=== PATIENT | female | born 1930 | race Caucasian/White ===

== ENCOUNTER 2016-11-08 10:28 | Outpatient (CLI) | payer MEDICARE ==
[2016-11-08 11:16] LABS: #Basophils 0.1 thou/uL (0.0-0.2); #Eosinphils 0.1 thou/uL (0.0-0.7); #Lymphocytes 1.3 thou/uL (1.20-3.40); #Monocytes 0.4 thou/uL (0.11-0.59); #Neutrophils 2.1 thou/uL (1.40-6.50); %Basophils 2.3 % (0.0-1.0); %Eosinophils 2.7 % (0.0-10.0); %Lymphocytes 32.5 % (21.0-51.0); %Monocytes 9.4 % (0.0-10.0); Hemoglobin 11.3 g/dL (12.0-16.0); Mean Corpuscular HGB CONC 32.1 g/dL (32.0-36.0); Mean Corpuscular Hemoglobin 28.6 pg (27.0-31.0); Mean Platelet Volume 8.9 fL (7.4-10.4); Platelet Count 148 thou/uL (130-400); RBC Distribution Width 12.7 % (11.5-14.5); Red Blood Cell (RBC) Count 3.96 mill/uL (4.20-5.40); White Blood Cell (WBC) Count 3.9 thou/uL (4.8-10.8)
[2016-11-08 11:29] LABS: ALT (SGPT) 9 U/L (8-55); AST (SGOT) 16 U/L (5-34); Albumin 4.1 g/dL (3.4-4.8); Alkaline Phosphatase 100 U/L (40-150); Anion Gap 13 mmol/L (10-20); BUN (Urea Nitrogen) 22 mg/dL (9.8-20.1); Bilirubin, Total 0.5 mg/dL (0.2-1.2); Calc. Creatinine Clearance 0 mL/min (70-130); Calcium 9.7 mg/dL (7.8-10.44); Carbon Dioxide 27 mmol/L (23-31); Cardiac Risk 3.3 (Less than 4.5); Chloride 106 mmol/L (98-107); Cholesterol 156 mg/dl (< 200 Desired); Estimated GFR-MDRD 61; Globulin 3.4 g/dL (2.4-3.5); Glucose 80 mg/dL (83-110); HDL Cholesterol 47 mg/dL (>60 Neg Risk); LDL Cholesterol, Calculated 94 mg/dL; Potassium 3.9 mmol/L (3.5-5.1); Protein, Total 7.5 g/dL (6.0-8.3); Sodium 142 mmol/L (136-145); Triglycerides 76 mg/dL (Less than 150)
[2016-11-08 11:45] LABS: Free T4 (Free Thyroxine) 1.02 ng/dL (0.70-1.48); Thyroid Stimulating Hormone 1.5836 uIU/mL (0.35-4.94)
== END 2016-11-08 10:29 | disposition home or self-care (01) ==
LOC: MADLABBHPM 10:28
PROVIDERS: ATTEND Family Medicine
DX: I10 Essential (primary) hypertension (principal)
CPT/HCPCS: 36415; 80053; 80061; 84439; 84443; 85025

== ENCOUNTER 2017-01-14 19:21 | Emergency (ER) | payer MEDICARE ==
[~2017-01-14 19:21] MED LIST: Sodium Chloride 0.9% 100 ML BAG ONE
[2017-01-14] MEDS ORDERED: Dexamethasone 10 MG/ML VIAL ONE (19:51)
[2017-01-14] MEDS ORDERED: cefTRIAXone\\ROCEPHIN 1 GM VIAL ONE (19:51)
[2017-01-14] MEDS ORDERED: methylPREDNISolone Sod Succ/PF 125 MG/2 ML VIAL ONE (19:51)
[2017-01-14 20:03] LABS: #Basophils 0.1 thou/uL (0.0-0.2); #Eosinphils 0.1 thou/uL (0.0-0.7); #Lymphocytes 1.2 thou/uL (1.20-3.40); #Monocytes 0.5 thou/uL (0.11-0.59); #Neutrophils 3.8 thou/uL (1.40-6.50); %Basophils 1.2 % (0.0-1.0); %Eosinophils 1.9 % (0.0-10.0); %Lymphocytes 21.4 % (21.0-51.0); %Monocytes 8.5 % (0.0-10.0); Hemoglobin 12.3 g/dL (12.0-16.0); Mean Corpuscular HGB CONC 31.9 g/dL (32.0-36.0); Mean Corpuscular Volume 84.6 fl (81.0-99.0); Mean Platelet Volume 8.6 fL (7.4-10.4); Platelet Count 130 thou/uL (130-400); RBC Distribution Width 13.8 % (11.5-14.5); Red Blood Cell (RBC) Count 4.56 mill/uL (4.20-5.40); White Blood Cell (WBC) Count 5.6 thou/uL (4.8-10.8)
[2017-01-14 20:06] LABS: INR-International Normal Ratio 1.1; PTT 28.7 SEC (22.9-36.1); Prothrombin Time 14.4 SEC (12.0-14.7)
[2017-01-14 20:18] LABS: ALT (SGPT) 11 U/L (8-55); AST (SGOT) 14 U/L (5-34); Alkaline Phosphatase 83 U/L (40-150); Anion Gap 16 mmol/L (10-20); BUN (Urea Nitrogen) 26 mg/dL (9.8-20.1); Bilirubin, Total 0.4 mg/dL (0.2-1.2); CK (CPK) 50 U/L (29-168); Calc. Creatinine Clearance 0 mL/min (70-130); Calcium 9.1 mg/dL (7.8-10.44); Carbon Dioxide 26 mmol/L (23-31); Chloride 105 mmol/L (98-107); Estimated GFR-MDRD 44; Globulin 3.2 g/dL (2.4-3.5); Glucose 116 mg/dL (83-110); Magnesium 2.2 mg/dL (1.6-2.6); Potassium 3.7 mmol/L (3.5-5.1); Protein, Total 7.2 g/dL (6.0-8.3); Sodium 143 mmol/L (136-145)
[2017-01-14 20:19] LABS: CKMB 1.2 ng/mL (0-6.6); Troponin I Less than 0.010 ng/mL (< 0.028)
--- NOTE | 2017-01-14 20:45 | RAD ---
EXAM: ONE VIEW CHEST 01/14/17 HISTORY: Dyspnea. FINDINGS: Single view chest: There are sternotomy wires. There is atherosclerosis of the aortic knob. Normal cardiac silhouette. Pulmonary vessels are slightly prominent. Patchy interstitial opacities is likely due to edema. No s ignificant pleural fluid. Mild hyperinflation. No pneumothorax. IMPRESSION: 1. Pulmonary vascular prominence and interstitial edema. 2. Atherosclerosis. 3. Hyperinflation. POS: [facility]
== END 2017-01-14 22:02 | disposition home or self-care (01) ==
LOC: MADERS 19:21
DX: R06.02 Shortness of breath (principal); Z79.899 Other long term (current) drug therapy
CPT/HCPCS: 36415; 71010; 80053; 82553; 83735; 83880; 84484; 85025; 85610; 85730; 87040; 93005; 94640; 94760; 96365; 96375; J0696; J1100; J2930; J7050; J7620

== ENCOUNTER 2018-09-14 19:08 | Emergency (ER) | payer MEDICARE ==
[~2018-09-14 19:08] MED LIST changes: +Iopamidol 370 76% 100 ML VIAL ONE; -Sodium Chloride 0.9% 100 ML BAG ONE
[2018-09-14 20:10] LABS: Bilirubin Negative (Negative); Blood, Urine Trace (Negative); Glucose, Urine (Dipstick) Negative (Negative); Leukocyte Moderate (Negative); Nitrite Positive (Negative); Protein, Urine (Dipstick) 30 mg/dL (Neg-Trace); Specific Gravity, Urine 1.025 (1.005-1.030); Urobilinogen 0.2 mg/dL (0.2-1.0)
[2018-09-14 20:11] LABS: #Basophils 0.1 thou/uL (0.0-0.2); #Eosinphils 0.1 thou/uL (0.0-0.7); #Lymphocytes 0.6 thou/uL (1.20-3.40); #Monocytes 0.3 thou/uL (0.11-0.59); #Neutrophils 4.5 thou/uL (1.40-6.50); %Basophils 1.2 % (0.0-1.0); %Eosinophils 0.9 % (0.0-10.0); %Lymphocytes 11.1 % (21.0-51.0); %Monocytes 6.1 % (0.0-10.0); %Neutrophils 80.7 % (42.0-75.0); Hemoglobin 12.5 g/dL (12.0-16.0); Mean Corpuscular HGB CONC 32.2 g/dL (32.0-36.0); Mean Corpuscular Hemoglobin 27.8 pg (27.0-31.0); Mean Corpuscular Volume 86.4 fL (78.0-98.0); Mean Platelet Volume 7.4 fL (7.4-10.4); Platelet Count 205 thou/uL (130-400); RBC Distribution Width 12.8 % (11.5-14.5); White Blood Cell (WBC) Count 5.6 thou/uL (4.8-10.8)
[2018-09-14 20:11] LABS: Clarity Hazy (Clear)
[2018-09-14 20:16] LABS: Bacteria/HPF 4+ HPF (None Seen); Squamous Epithelial 0-3 HPF (0-3); WBC/HPF 21-50 HPF (0-3)
[2018-09-14] MEDS ORDERED: Prochlorperazine 10 MG/2 ML VIAL ONE (20:26)
--- NOTE | 2018-09-14 20:29 | RAD ---
AP VIEW CHEST: 09/14/18 HISTORY: Nausea and vomiting, choking. AP view chest is obtained on 09/14/18. Comparison made to previous exam from 01/14/17. AP view chest demonstrates sternotomy wires seen. Mild pulmonary vascular congestion seen. No evidenc e of effusions, pneumonia or pneumothorax seen. IMPRESSION: Unremarkable AP view chest. POS: [facility]
[2018-09-14 20:32] LABS: ALT (SGPT) 10 U/L (8-55); AST (SGOT) 17 U/L (5-34); Albumin 4.1 g/dL (3.4-4.8); Alkaline Phosphatase 108 U/L (40-150); Anion Gap 15 mmol/L (10-20); BUN (Urea Nitrogen) 12 mg/dL (9.8-20.1); Bilirubin, Total 0.5 mg/dL (0.2-1.2); Calc. Creatinine Clearance 0 mL/min (70-130); Calcium 9.3 mg/dL (7.8-10.44); Carbon Dioxide 26 mmol/L (23-31); Chloride 107 mmol/L (98-107); Estimated GFR-MDRD 72; Globulin 3.1 g/dL (2.4-3.5); Glucose 124 mg/dL (83-110); Lipase 32 U/L (8-78); Magnesium 2.1 mg/dL (1.6-2.6); Potassium 3.9 mmol/L (3.5-5.1); Protein, Total 7.2 g/dL (6.0-8.3); Sodium 144 mmol/L (136-145)
[2018-09-14] MEDS ORDERED: Nitroglycerin 2% Ointment 1 INCH/1 GM Packet ONE (20:57)
[2018-09-14] MEDS ORDERED: cefTRIAXone\\ROCEPHIN 1 GM VIAL ONE (21:00)
[2018-09-14] MEDS ORDERED: Sodium Chloride 0.9% 100 ML ONE (21:00)
--- NOTE | 2018-09-14 21:42 | CT ---
NONCONTRAST CT HEAD: 09/14/18 HISTORY: Altered mental status and vomiting. Elevated blood pressure. FINDINGS: There is motion artifact on multiple images mildly degrading image quality. No obvious intraparenchym al or extra-axial hemorrhage is seen. There are no findings to suggest an acute cortical infarction. There are two punctate low density foci seen within the posterior limb left internal capsule relate d to lacunar infarctions of indeterminate age. Small wedge shaped low density area seen in the left c erebellar hemisphere most compatible with a remote infarction. There is mild cerebral volume loss an d chronic small vessel ischemic changes. The ventricular system is normal in size, shape and position for the degree of sulcal atrophy. The visualized paranasal sinuses and mastoid air cells are clear. Calvarial structures have a normal appearance. IMPRESSION: 1. Punctate lacunar infarctions posterior limb left internal capsule of indeterminate age. There is no acute cortical infarction seen. 2. Remote infarction left cerebellar hemisphere. 3. Mild cerebral volume loss and chronic small vessel ischemic changes. POS: [facility]
[2018-09-14] MEDS ORDERED: Labetalol HCl 100 MG/20 ML VIAL ONE (21:53)
--- NOTE | 2018-09-14 22:07 | CT ---
CT ABDOMEN AND PELVIS WITH IV CONTRAST: 09/14/18 HISTORY: Abdominal pain with nausea and vomiting. FINDINGS: Parenchymal changes are seen at the posterior right lung base probably related to pleural thickening and associated volume loss. There is a 1.4 cm hypodense lesion seen within the body of the spleen with a few additional smaller h ypodense lesions. Difficult to characterize. A 3.5 cm hypodense cystic lesion is seen in the inferior pole right kidney demonstrating characterist ics most compatible with a cyst. Subcentimeter too small to characterize hypodense lesions are seen i n each kidney. There is a staghorn left renal calculus with scarring involving the inferior pole left kidney. There is mild dilatation of inferior pole left renal calyces. Mild caliectasis of superior pole left shiraz l calyces. There is minimal stranding adjacent to the renal pelvis which does contain portion of the staghorn renal calculus which involves the left renal pelvis and inferior pole left kidney. Mild str anding may be related to the calculus, but infection cannot be entirely excluded. Correlation with ur inalysis is recommended. The gallbladder is distended. There are calculi and/or sludge layering dependently within the gallbla dder fundus. There is suggestion of trace biliary ductal dilatation. Common duct is not dilated. The pancreas and bilateral adrenal glands as well as urinary bladder demonstrate a normal CT appearan ce. Small amount of free fluid is seen in the pericolic gutters bilaterally as well in the pelvis. There is mild bowel wall thickening involving loops of small bowel within the left lower quadrant and in the pelvis with adjacent mild mesenteric edema and fluid which could also be attributable to ente ritis. The thickened loops of bowel are mildly prominent but do measure less than 3 cm. Scattered colonic diverticula are seen. Multilevel degenerative changes are seen in the spine with mild right convexed curvature of the thora columbar spine. Right total hip prosthesis is present. No fluid collection or lymphadenopathy is seen in the abdomen or pelvis. A few mildly prominent left periaortic lymph nodes are present. Largest measuring 0.9 cm in short axis dimension which are nonspe cific. IMPRESSION: 1. Thickened loops of small bowel in the left abdomen which extend into the pelvis with adjacent mild mesenteric edema and fluid with mild prominence of these loops of bowel. Findings may be relate d to enteritis. 2. 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 There is calyceal dilatation inferior pole left renal calculus and to a lesser extent the superior pole. Mild stranding is seen adjacent the left renal pelvis which is nonspecific and ma y be attributable to the calculus. However, infection cannot be entirely excluded, and correlation wi th urinalysis is recommended. 3. Right renal cyst with too small to characterize hypodense lesions in each kidney. 4. Distention of the gallbladder with gallbladder calculi and/or sludge. 5. Hypodense lesions in the spleen. The exact etiology is uncertain. Findings could be related t o cysts. Follow-up evaluation recommended. 6. Pleural thickening and volume loss at the right lung base. 7. Small amount of free fluid in the abdomen and pelvis. POS: [facility]
== END 2018-09-14 22:17 | disposition short-term general hospital (02) ==
LOC: MADERS 19:08
DX: K80.20 Calculus of gallbladder without cholecystitis without obstruction (principal); N20.0 Calculus of kidney; E87.70 Fluid overload, unspecified; I10 Essential (primary) hypertension; K63.89 Other specified diseases of intestine; F03.90 Unspecified dementia, unspecified severity, without behavioral disturbance, psychotic disturbance, mood disturbance, and anxiety; K21.9 Gastro-esophageal reflux disease without esophagitis; D64.9 Anemia, unspecified; F42.9 Obsessive-compulsive disorder, unspecified; F32.9 Major depressive disorder, single episode, unspecified; Z79.899 Other long term (current) drug therapy
CPT/HCPCS: 36415; 51701; 70450; 71045; 74177; 80053; 81003; 81015; 83690; 83735; 83880; 84443; 84484; 85025; 87077; 87086; 87186; 93005; 96365; 96375; A4353; J0696; J0780; J3490; Q9967

== ENCOUNTER 2019-06-10 15:23 | Outpatient (CLI) | payer MEDICARE | END 2019-06-10 15:24 | disposition home or self-care (01) | LOC: MADLABBHPM 15:23 | PROVIDERS: ATTEND Family Medicine | DX: R05 Cough (principal) | CPT/HCPCS: 87804 ==

== ENCOUNTER 2019-11-08 12:08 | Emergency (ER) | payer MEDICARE, OTHER ==
[2019-11-08] MEDS ORDERED: Sodium Chloride 0.9% 1,000 ML ONE (13:04)
[2019-11-08 13:11] LABS: Anisocytosis SLIGHT = 6-15 cells (100X) (0-5/hpf); Band 7 % (5-11); Eosinophils 1 % (0-10); Hemoglobin 13.3 g/dL (12.0-16.0); Hypochromia SLIGHT = 6-15 cells (100X) (0-5/hpf); Lymphocytes 6 % (21-51); MDiff Complete? YES; Mean Corpuscular HGB CONC 30.8 g/dL (32.0-36.0); Mean Corpuscular Hemoglobin 27.6 pg (27.0-31.0); Mean Corpuscular Volume 89.6 fL (78.0-98.0); Mean Platelet Volume 9.5 fL (7.4-10.4); Monocytes 5 % (0-10); Neutrophil 81 % (42-75); Platelet Count 181 thou/uL (130-400); Platelet Morphology Comment Appears Adequate; RBC Distribution Width 14.4 % (11.5-14.5); Red Blood Cell (RBC) Count 4.81 mill/uL (4.20-5.40); White Blood Cell (WBC) Count 22.5 thou/uL (4.8-10.8)
[2019-11-08 13:17] LABS: ALT (SGPT) 128 U/L (8-55); AST (SGOT) 83 U/L (5-34); Alkaline Phosphatase 210 U/L (40-110); Anion Gap 24 mmol/L (10-20); BUN (Urea Nitrogen) 64 mg/dL (9.8-20.1); Bilirubin, Total 0.8 mg/dL (0.2-1.2); Calc. Creatinine Clearance 0 mL/min (70-130); Calcium 8.2 mg/dL (7.8-10.44); Carbon Dioxide 22 mmol/L (23-31); Chloride 100 mmol/L (98-107); Estimated GFR-MDRD 8; Globulin 3.8 g/dL (2.4-3.5); Glucose 82 mg/dL (83-110); Lipase 874 U/L (8-78); Potassium 4.8 mmol/L (3.5-5.1); Protein, Total 7.8 g/dL (6.0-8.3); Sodium 141 mmol/L (136-145)
[2019-11-08 13:34] LABS: CKMB 1.7 ng/mL (0-6.6)
[2019-11-08 14:07] LABS: Bilirubin Small (Negative); Blood, Urine Moderate (Negative); Clarity Cloudy (Clear); Glucose, Urine (Dipstick) Negative (Negative); Leukocyte Large (Negative); Nitrite Negative (Negative); Protein, Urine (Dipstick) > or equal to 300 mg/dL (Neg-Trace)
[2019-11-08 14:09] LABS: Bacteria/HPF 4+ HPF (None Seen); WBC/HPF Greater Than 50 HPF (0-3)
[2019-11-08] MEDS ORDERED: Sodium Chloride 0.9% 100 ML ONE (14:13)
[2019-11-08] MEDS ORDERED: Piperacillin/Tazobactam 2.25 GM VIAL ONE (14:13)
--- NOTE | 2019-11-08 14:26 | CT ---
Exam: Abdomen CT without contrast Pelvic CT without contrast HISTORY: Pain COMPARISON: 09/21/2018 FINDINGS: Abdomen CT: Lung bases:Small right-sided pleural effusion Heart size: Normal heart size. No significant pericardial fluid Aorta: Atherosclerosis of a nonaneurysmal aorta Solid organs: Limited evaluation by the lack of IV contrast. Grossly no solid organ abnormality Lymph nodes: No gastrohepatic, retrocrural or periportal lymphadenopathy Gallbladder: Moderately distended gallbladder with hyperdense material and pericholecystic fluid and pericholecystic fat stranding. Correlate for possible cholecystitis. Mesentery: There are some mildly enlarged central abdominal mesenteric lymph nodes with stranding of the central abdominal mesentery. Small amount of fluid in the right paracolic gutter. Kidneys: Redemonstration of staghorn calculus occupying the left renal pelvis. No evidence of associa sujatha obstructive uropathy. Stable atrophy of the left kidney. Redemonstration of ill-defined hypodensity in the right renal cortex, compatible with a 2.4 x 2.5 cm cyst. Alimentary canal: Limited evaluation by the lack of oral contrast. There does appear to be mild mucos al thickening and adjacent mesenteric fat stranding involving the duodenum. Correlate for peptic ulcer disease versus reactive changes from adjacent cholecystitis. No evidence of a small bowel obstr uction. Appendix is not appreciated. No secondary signs of appendicitis. Decompressed colon. CT PELVIS: Limited evaluation due to beam attenuation artifact. No pelvic mass, lymphadenopathy, free air or marcy e fluid surgically absent uterus Urinary bladder: Unremarkable. Osseous structures: No acute abnormality IMPRESSION: 1. Inflammatory changes centered in the epigastric region/right upper quadrant. Correlate for cholecy stitis along with peptic ulcer disease. 2. Stranding of the abdominal mesentery and enlarged lymph nodes are presumed to be reactive. Small a mount of fluid in the right paracolic gutter is noted. Transcribed Date/Time: 11/08/2019 2:28 PM
== END 2019-11-08 15:55 | disposition short-term general hospital (02) ==
LOC: MADERS 12:08
DX: K81.0 Acute cholecystitis (principal); N28.9 Disorder of kidney and ureter, unspecified; I11.0 Hypertensive heart disease with heart failure; I50.9 Heart failure, unspecified; D64.9 Anemia, unspecified; F41.9 Anxiety disorder, unspecified; F32.9 Major depressive disorder, single episode, unspecified; F42.9 Obsessive-compulsive disorder, unspecified; Z79.899 Other long term (current) drug therapy
CPT/HCPCS: 36415; 51701; 74176; 80053; 81003; 81015; 82553; 83605; 83690; 84484; 85025; 93005; 96361; 96365; J2543; J3490; J7050

== ENCOUNTER 2020-06-28 12:17 | Emergency (ER) | payer MEDICARE, MEDICAID ==
[~2020-06-28 12:17] MED LIST changes: -Iopamidol 370 76% 100 ML VIAL ONE; +Norepinephrine 4 MG/4 ML VIAL ONE
[2020-06-28 12:59] LABS: ALT (SGPT) 23 U/L (8-55); AST (SGOT) 21 U/L (5-34); Albumin 3.4 g/dL (3.4-4.8); Alkaline Phosphatase 147 U/L (40-110); Anion Gap 14 mmol/L (10-20); BUN (Urea Nitrogen) 39 mg/dL (9.8-20.1); Bilirubin, Total 0.5 mg/dL (0.2-1.2); CK (CPK) 30 U/L (29-168); Calc. Creatinine Clearance 0 mL/min (70-130); Calcium 8.6 mg/dL (7.8-10.44); Carbon Dioxide 18 mmol/L (23-31); Chloride 125 mmol/L (98-107); Globulin 2.7 g/dL (2.4-3.5); Glucose 113 mg/dL (83-110); Lipase 47 U/L (8-78); Potassium 5.2 mmol/L (3.5-5.1); Protein, Total 6.1 g/dL (5.8-8.1); Sodium 152 mmol/L (136-145)
[2020-06-28 13:08] LABS: Hemoglobin 10.8 g/dL (12.0-16.0); Mean Corpuscular HGB CONC 30.5 g/dL (32.0-36.0); Mean Corpuscular Hemoglobin 27.2 pg (27.0-31.0); Mean Corpuscular Volume 89.4 fL (78.0-98.0); Mean Platelet Volume 11.4 fL (7.4-10.4); Platelet Count 41 thou/uL (130-400); RBC Distribution Width 17.7 % (11.5-14.5); Red Blood Cell (RBC) Count 3.96 mill/uL (4.20-5.40)
[2020-06-28 13:10] LABS: Band 1 % (5-11); Lymphocytes 10 % (21-51); MDiff Complete? YES; Manual Diff?? YES; White Blood Cell (WBC) Count 4.8 thou/uL (4.8-10.8)
[2020-06-28 13:11] LABS: Burr Cells SLIGHT = 2-5 cells (100X) (0-1/hpf); Eosinophils 1 % (0-10); Large Platelets SLIGHT; Monocytes 3 % (0-10); Neutrophil 85 % (42-75); Ovalocytes SLIGHT = 2-5 cells (100X) (0-1/hpf); Platelet Morphology Comment Appears Decreased; Target Cells SLIGHT = 2-5 cells (100X) (0-1/hpf); Vacuoles SLIGHT
--- NOTE | 2020-06-28 13:11 | CT ---
Exam: Head CT without contrast HISTORY: Altered mental status, declining COMPARISON: 06/22/2020 FINDINGS: Hemorrhage: No intraparenchymal hemorrhage or extra-axial hematoma. Brain parenchyma: Stable loss of medley-white matter differentiation medial left occipital lobe. Remain evelio the cerebrum is unchanged.Remote insult in the left cerebellar hemisphere Ventricular system: Ventricles and sulci are patent and symmetric. Calvarium: Intact. Sinuses and mastoid air cells: Stable opacification the right mastoid air cells and middle ear. IMPRESSION: 1. Persistent hypodensity in the left cerebellar hemisphere. Findings may represent a evolving infarc t. Correlate clinically. 2. Remote insult to the left cerebellar hemisphere. 3. Opacification the right clear and mastoid air cells. Correlate for otomastoiditis.
[2020-06-28 13:12] LABS: Anisocytosis SLIGHT = 6-15 cells (100X) (0-5/hpf); Hypochromia SLIGHT = 6-15 cells (100X) (0-5/hpf)
[2020-06-28] MEDS ORDERED: Cefepime 2 GM VIAL ONE (13:14)
[2020-06-28] MEDS ORDERED: Sodium Chloride 0.9% 1,000 ML ONE (13:14)
[2020-06-28] MEDS ORDERED: Sodium Chloride 0.9% 100 ML ONE (13:14)
[2020-06-28] MEDS ORDERED: Vancomycin 1.5 GRAM/300 ML BAG ONE (13:15)
[2020-06-28 13:41] LABS: Bilirubin Negative (Negative); Blood, Urine Moderate (Negative); Glucose, Urine (Dipstick) Negative (Negative); Ketone, Urine Trace mg/dL (Negative); Leukocyte Small (Negative); Nitrite Negative (Negative); Protein, Urine (Dipstick) 100 mg/dL (Neg-Trace); Specific Gravity, Urine 1.025 (1.005-1.030); Urobilinogen 0.2 mg/dL (Less than 2)
[2020-06-28 13:42] LABS: Clarity Cloudy (Clear)
[2020-06-28 13:43] LABS: Bacteria/HPF Rare-Few HPF (None Seen); Mucous/LPF 1+ LPF (<2+); WBC/HPF Greater Than 50 HPF (0-3)
--- NOTE | 2020-06-28 13:44 | RAD ---
PORTABLE CHEST 1 VIEW: Date: 06/28/2020 Time: 1314 hours HISTORY: Dyspnea. COMPARISON: 06/22/2020. FINDINGS/IMPRESSION: Changes of median sternotomy are again seen. The heart size is enlarged. There is pulmonary vascular congestion with left pleural effusion. A tiny right pleural effusion may also be present. No pneumoth oraces or lobar consolidation are identified. POS: [facility]
[2020-06-28] MEDS ORDERED: Atropine Sulfate 1 mg/10 ml Syringe ONE (13:46)
[2020-06-28] MEDS ORDERED: Norepinephrine 4 MG/4 ML VIAL ONE (14:14)
== END 2020-06-28 15:35 | disposition short-term general hospital (02) ==
LOC: MADERS 12:17
DX: T68.XXXA Hypothermia, initial encounter (principal); G93.41 Metabolic encephalopathy; R00.1 Bradycardia, unspecified; J96.91 Respiratory failure, unspecified with hypoxia; J30.9 Allergic rhinitis, unspecified; I11.0 Hypertensive heart disease with heart failure; I50.9 Heart failure, unspecified; D50.9 Iron deficiency anemia, unspecified
CPT/HCPCS: 51701; 70450; 71045; 80053; 81003; 81015; 82550; 83605; 83690; 83880; 84484; 85025; 87040; 87086; 87804; 93005; 94760; 96365; 96367; 96368; 96375; J0461; J0692; J3370; J3490; J7050